=== PATIENT | female | born 1995 | race Caucasian/White ===

== ENCOUNTER 2016-09-13 17:52 | Outpatient (CLI) | payer OTHER, MEDICAID | END 2016-09-13 17:53 | disposition home or self-care (01) | DX: M19.071 Primary osteoarthritis, right ankle and foot (principal); M25.571 Pain in right ankle and joints of right foot; M21.41 Flat foot [pes planus] (acquired), right foot ==

== ENCOUNTER 2017-01-31 08:45 | Outpatient (CLI) | payer OTHER, MEDICAID | END 2017-01-31 08:46 | disposition home or self-care (01) | LOC: LAB.WCP 08:45 | PROVIDERS: ATTEND Physician Assistant Medical | DX: L02.91 Cutaneous abscess, unspecified (principal) | CPT/HCPCS: 87070; 87205 ==

== ENCOUNTER 2017-06-26 16:52 | Outpatient (CLI) | payer BC, MEDICAID ==
--- NOTE | 2017-06-28 16:24 | Ultrasound Report ---
BILATERAL ABIs: 06/26/2017 CLINICAL INDICATION: Paresthesias. TECHNIQUE: Real-time sonographic vascular imaging was performed by the circular knife cutter machine through the [] utilizing both color-flow and Doppler flow analysis. Multiple lifeline representatives static images were saved for review. RIGHT SIDE SITE PSV WAVEFORM STEN CHAI -- MAO -- GALO -- LEO -- EIA -- CROP DUSTER HELPER -- PSFA -- MSFA -- DSFA -- PFA -- POP -- ADA -- SHRINK PIT OPERATOR 24.8 triphasic PER -- DPA 22 triphasic LEFT SIDE SITE PSV WAVEFORM STEN LEO -- EIA -- CROP DUSTER HELPER -- PSFA -- MSFA -- DSFA -- PFA -- POP -- ADA -- SHRINK PIT OPERATOR 16.7 triphasic PER -- DPA 23.9 triphasic RIGHT LEFT SYSTOLIC PRESSURES BRACHIAL ARTERY 123/81 116/79 POSTERIOR TIBIAL ARTERY 134/74 126/83 ANTERIOR TIBIAL ARTERY -- -- PERONEAL ARTERY -- -- ANKLE/ARM INDEX 1.08 1.02 FINDINGS: ABIs are normal, measuring 1.08 on the right and 1.02 on the left. IMPRESSION: NORMAL BILATERAL ABIs. TD: 06/27/2017 10:02 SUNNY
== END 2017-06-26 16:53 | disposition home or self-care (01) ==
LOC: DI 16:52
PROVIDERS: ATTEND Physician Assistant Medical
DX: R20.2 Paresthesia of skin (principal)
CPT/HCPCS: 93922

== ENCOUNTER 2018-11-19 16:31 | Outpatient (CLI) | payer BC, MEDICAID ==
--- NOTE | 2018-11-19 17:30 | XRAY Report ---
Reason: CHEST PAIN Procedure Date: 11/19/2018 Accession Number: [id number] / [id number] Procedure: XR - Chest 2 View X-Ray CPT Code: 38770 FULL RESULT: EXAM: CHEST RADIOGRAPHY EXAM DATE: 11/19/2018 04:39 PM. CLINICAL HISTORY: CHEST PAIN. COMPARISON: None. TECHNIQUE: 2 views. FINDINGS: Lungs/Pleura: No dense consolidation. No large effusion or pneumothorax. No pulmonary edema. Mediastinum: Heart and mediastinal contours are unremarkable. Other: Mild S-shaped scoliosis. IMPRESSION: No acute radiographic pulmonary abnormalities. RADIA
== END 2018-11-19 16:32 | disposition home or self-care (01) ==
LOC: DI 16:31
PROVIDERS: ATTEND Physician Assistant Medical
DX: R07.9 Chest pain, unspecified (principal)
CPT/HCPCS: 71046

== ENCOUNTER 2019-03-20 15:46 | Outpatient (CLI) | payer BC, MEDICAID ==
--- NOTE | 2019-03-20 20:01 | XRAY Report ---
Reason: CHRONIC NECK PAIN Procedure Date: 03/20/2019 Accession Number: [id number] / [id number] Procedure: WCP - Cervical Spine 2 View CPT Code: FULL RESULT: EXAM: CERVICAL SPINE RADIOGRAPHY EXAM DATE: 03/20/2019 03:46 PM. CLINICAL HISTORY: CHRONIC NECK PAIN. COMPARISONS: None. TECHNIQUE: 3 views. FINDINGS: Alignment: Straightening of the normal cervical lordosis. No spondylolisthesis or scoliosis. Bones: The cervical vertebral bodies and posterior elements are well seen from the skull base through C7-T1. No fractures or bone lesions. Disks: Disk heights are maintained. Facets: No degenerative disease. Soft Tissues: No prevertebral soft tissue swelling. IMPRESSION: Normal 3 view cervical spine radiography. RADIA
== END 2019-03-20 23:59 | disposition home or self-care (01) ==
LOC: DI.WCP 15:46
PROVIDERS: ATTEND Physician Assistant Medical
DX: M54.2 Cervicalgia (principal)
CPT/HCPCS: 72040

== ENCOUNTER 2019-04-23 07:00 | Outpatient (CLI) | payer BC, MEDICAID | END 2019-04-23 23:59 | disposition home or self-care (01) | LOC: LAB.R 07:00 | PROVIDERS: ATTEND Physician Assistant Medical | DX: N39.0 Urinary tract infection, site not specified (principal) | CPT/HCPCS: 87086 ==

== ENCOUNTER 2020-02-12 07:00 | Outpatient (CLI) | payer OTHER, MEDICAID | END 2020-02-12 23:59 | disposition home or self-care (01) | LOC: LAB.R 07:00 | PROVIDERS: ATTEND Physician Assistant Medical | DX: R31.9 Hematuria, unspecified (principal) | CPT/HCPCS: 87086 ==

== ENCOUNTER 2020-04-14 14:00 | Outpatient (CLI) | payer OTHER, MEDICAID | END 2020-04-14 23:59 | disposition home or self-care (01) | LOC: LAB.R 14:00 | PROVIDERS: ATTEND Family Medicine | DX: N39.0 Urinary tract infection, site not specified (principal) | CPT/HCPCS: 87086 ==

== ENCOUNTER 2020-12-21 17:30 | Outpatient (CLI) | payer MEDICAID, OTHER | END 2020-12-21 23:59 | disposition home or self-care (01) | LOC: LAB.WCP 17:30 | PROVIDERS: ATTEND Physician Assistant Medical | DX: L02.91 Cutaneous abscess, unspecified (principal) | CPT/HCPCS: 87070; 87077; 87181; 87205 ==

== ENCOUNTER 2021-03-04 08:29 | Outpatient (CLI) | payer MEDICARE, MEDICAID ==
[2021-03-04 12:11] LABS: BASOPHILS % (AUTO) 0.6 %; EOSINOPHILS # (AUTO) 0.2 10^3/uL (0.0-0.7); EOSINOPHILS % (AUTO) 2.6 %; HCT - HEMATOCRIT 41.8 % (37.0-47.0); HGB - HEMOGLOBIN 13.6 g/dL (12.0-16.0); LYMPHOCYTES # (AUTO) 1.8 10^3/uL (1.5-3.5); LYMPHOCYTES % (AUTO) 27.6 %; MEAN CORPUSCULAR HEMOGLOBIN 27.1 pg (27.0-31.0); MEAN CORPUSCULAR HGB CONC 32.5 g/dL (32.0-36.0); MEAN CORPUSCULAR VOLUME 83.3 fL (81.0-99.0); MEAN PLATELET VOLUME 11.5 fL (7.9-10.8); MONOCYTES # (AUTO) 0.6 10^3/uL (0.0-1.0); MONOCYTES % (AUTO) 9.8 %; NEUTROPHILS # (AUTO) 3.8 10^3/uL (1.5-6.6); NEUTROPHILS % (AUTO) 59.2 %; PLT - PLATELET COUNT 275 10^3/uL (130-450); RED BLOOD COUNT 5.02 10^6/uL (4.20-5.40); WHITE BLOOD COUNT 6.5 x10^3/uL (4.8-10.8)
[2021-03-04 12:36] LABS: THYROID STIMULATING HORMONE 2.86 uIU/mL (0.34-5.60)
[2021-03-04 12:38] LABS: ALBUMIN 4.6 g/dL (3.2-5.5); ALBUMIN/GLOBULIN RATIO 1.1 (1.0-2.2); ALKALINE PHOSPHATASE 53 IU/L (42-121); ALT ALANINE AMINOTRANSFERASE 15 IU/L (10-60); AST ASPARTATE AMINOTRANSFERASE 24 IU/L (10-42); BILIRUBIN,TOTAL 1.3 mg/dL (0.2-1.0); BUN - BLOOD UREA NITROGEN 11 mg/dL (6-20); CALCIUM 10.2 mg/dL (8.5-10.3); CARBON DIOXIDE - CO2 27 mmol/L (21-32); CHLORIDE 100 mmol/L (101-111); CHOL/HDL RATIO 2.7 (<4.4); CHOLESTEROL 187 mg/dL; CREATININE 0.6 mg/dL (0.4-1.0); GFR - MDRD 121 (>89); GLUCOSE 94 mg/dL (70-100); HDL CHOLESTEROL 69 mg/dL; LDL CHOLESTEROL,CALCULATED 104 mg/dL; LDL/HDL RATIO 1.5 (<4.4); POTASSIUM 3.9 mmol/L (3.5-5.0); SODIUM 140 mmol/L (135-145); TOTAL PROTEIN 8.9 g/dL (6.7-8.2); TRIGLYCERIDES 70 mg/dL; VLDL CHOLESTEROL 14 mg/dL
== END 2021-03-04 23:59 | disposition home or self-care (01) ==
LOC: LAB.WCP 08:29
PROVIDERS: ATTEND Physician Assistant Medical
DX: Z00.00 Encounter for general adult medical examination without abnormal findings (principal)
CPT/HCPCS: 36415; 80053; 80061; 83721; 84443; 85025

== ENCOUNTER 2021-05-12 16:45 | Outpatient (CLI) | payer MEDICARE, MEDICAID | END 2021-05-12 23:59 | disposition home or self-care (01) | LOC: LAB.N 16:45 | PROVIDERS: ATTEND Physician Assistant Medical | DX: R07.0 Pain in throat (principal); Z20.822 Contact with and (suspected) exposure to COVID-19 ==

== ENCOUNTER 2021-07-20 07:00 | Outpatient (CLI) | payer MEDICARE, MEDICAID | END 2021-07-20 23:59 | disposition home or self-care (01) | LOC: LAB.N 07:00 | PROVIDERS: ATTEND Physician Assistant Medical | DX: N92.1 Excessive and frequent menstruation with irregular cycle (principal) | CPT/HCPCS: 87086 ==

== ENCOUNTER 2022-01-22 20:33 | Emergency (ER) | payer MEDICARE, MEDICAID ==
[2022-01-22] MEDS ORDERED: predniSONE 20 MG TABLET PO STA (23:34)
[2022-01-22] MEDS ORDERED: diphenhydrAMINE ELIXIR 25 MG/10 ML UDC PO STA (23:34)
[2022-01-22] MEDS ORDERED: DEXAMETHASONE 10 MG/ML VIAL PO STA (23:41)
[2022-01-22] MEDS ORDERED: CHERRY SYRUP 10 ML UDC PO ONE (23:41)
[2022-01-22 23:53] VITALS: BP 141/91
--- NOTE | 2022-01-23 08:33 | ED Physician Documentation ---
History of Present Illness - Stated complaint Stated Complaint: WASP STING - Chief complaint Chief Complaint: Wound - History obtained from History obtained from: Patient, Family - History of Present Illness Timing: Yesterday Pain level now: 0 - Additonal information Additional information: stung by bee yesterday (mother of patient says it was a wasp), presents to ED at this time due to steadily worsening redness and swelling surrounding site of sting. Patient was stung dorsal surface of right hand Review of Systems Skin: reports: Bite / sting Musculoskeletal: reports: Extremity swelling. denies: Extremity pain Neurologic: denies: Focal weakness, Numbness PD PAST MEDICAL HISTORY - Past Medical History Past Medical History: Yes Cardiovascular: Other Respiratory: None Endocrine/Autoimmune: Other GI: None DIESEL TRACTOR OPERATOR: None : None HEENT: None Psych: None Musculoskeletal: None Derm: None - Past Surgical History Past Surgical History: Yes HEENT: Myringotomy (tubes) - Present Medications Home Medications: Ambulatory Orders Medication Instructions Recorded Confirmed Doxycycline Hyclate 100 mg PO BID #14 cap 01/22/22 PrednisoLONE [Prelone] 30 mg PO DAILY #30 ml 01/22/22 Spironolactone [Carospir] 01/22/22 - Allergies Allergies/Adverse Reactions: Allergies Allergy/AdvReac Type Severity Reaction Status Date / Time amoxicillin Allergy Hives Verified 01/22/22 20:52 sulfamethoxazole Allergy Rash Verified 01/22/22 20:53 [From Bactrim] trimethoprim [From Bactrim] Allergy Rash Verified 01/22/22 20:53 Pertussis Vaccines AdvReac Edema Verified 01/22/22 20:53 - Social History Does the pt smoke?: No Smoking Status: Never smoker Does the pt drink ETOH?: No Does the pt have substance abuse?: No - Immunizations Immunizations are current?: No Immunizations: TDAP >10years/unknown - POLST Patient has POLST: No PD ED PE NORMAL - Vitals Vital signs reviewed: Yes - General General: Alert and oriented X 3, No acute distress, Well developed/nourished PD ED PE EXPANDED - Extremities Extremities: Other (swelling and confluent, raised erythema of right hand and distal forearm, dorsal surface. no foreign body (stinger) seen including with magnification using otoscopic lens. no discharge, fluctuance. minimal tenderness) Results - Vitals Vitals: Oxygen O2 Source Room air PD MEDICAL DECISION MAKING - ED course Complexity details: considered differential, d/w patient, d/w family Departure - Departure Disposition: 01 Home, Self Care Clinical Impression: Bee sting Qualifiers: Encounter type: initial encounter Injury intent: accidental or unintentional Qualified Code(s): T63.441A - Toxic effect of venom of bees, accidental (unintentional), initial encounter Condition: Good Instructions: ED Bite Sting Insect Local Allergic React Follow-Up: Renetta Benson PA-C [Primary Care Provider] - Prescriptions: Doxycycline Hyclate 100 mg PO BID #14 cap PrednisoLONE [Prelone] 30 mg PO DAILY #30 ml Comments: There is no stinger at the site of the sting. I suspect your symptoms are due to a localized reaction to the bee sting, but, as we discussed, infection becomes an increasing concern if the symptoms are worsening after 1-2 days from the sting. You were given a dose of steroid and benadryl in the ER. A prescription for steroid has been electronically submitted to [facility] in [place]. Benadryl is [id number] and so no prescription is needed for this. Also, a prescription for an antibiotic has been sent as well. IF THE SWELLING AND REDNESS ARE NOT IMPROVING WITHIN THE NEXT 8-12 HOURS, I strongly advised you take the antibiotic. The benadryl and steroid alone would not treat an infection, so if these medications lead to improvement within 8-12 hours, infection is unlikely and you can hold off on the antibiotic . Discharge Date/Time: 01/22/22 23:52
== END 2022-01-22 23:52 | disposition home or self-care (01) ==
LOC: ED 20:33
DX: T63.441A Toxic effect of venom of bees, accidental (unintentional), initial encounter (principal)
CPT/HCPCS: 99282; 99283; A9270

== ENCOUNTER 2022-04-17 08:00 | Outpatient (CLI) | payer MEDICARE, MEDICAID ==
[2022-04-17 20:16] LABS: INFLUENZA A H3- RESP PCR PANEL DETECTED; INFLUENZA B - RESP PCR PANEL NOT DETECTED; RSV- RESP PCR PANEL NOT DETECTED; SARS-CoV-2 -RESP PCR PANEL NOT DETECTED
== END 2022-04-17 23:59 | disposition home or self-care (01) ==
LOC: LAB.N 08:00
PROVIDERS: ATTEND Physician Assistant Medical
DX: B34.9 Viral infection, unspecified (principal); Z20.822 Contact with and (suspected) exposure to COVID-19
CPT/HCPCS: 87637

== ENCOUNTER 2022-07-06 12:26 | Outpatient (CLI) | payer MEDICARE, MEDICAID | END 2022-07-06 12:27 | disposition home or self-care (01) | LOC: DI 12:26 | PROVIDERS: ATTEND Physician Assistant Medical | DX: Q99.9 Chromosomal abnormality, unspecified (principal); I77.810 Thoracic aortic ectasia | CPT/HCPCS: 93306 ==